=== PATIENT | male | born 1990 | race Two or more races ===

== ENCOUNTER 2017-06-07 19:32 | Observation (INO) | payer MEDICAID ==
[~2017-06-07] VITALS: Ht 177.8 cm; Wt 82.8 kg
[2017-06-07 20:28] LABS: DAU SCREEN DISCLAIMER
[2017-06-07 20:29] LABS: HEMATOCRIT 39.7 % (39.2-51.8); HEMOGLOBIN 13.7 g/dL (13.7-18.0)
[2017-06-07 20:41] LABS: ASPARTATE AMINO TRANSFERASE 34 U/L (15-37); BLOOD UREA NITROGEN 18 mg/dL (7-18)
[2017-06-07 20:44] LABS: ACETAMINOPHEN < 2 mcg/mL (10-30)
[2017-06-07] MEDS ORDERED: INSU100C SQ-INSULIN (21:25)
[2017-06-08] MEDS ORDERED: SODIUM CHLORIDE 0.9% 1,000ML IVBOLUS ONE
[2017-06-08] MEDS ORDERED: ONDANSETRON ODT 4 MG PO PRN (02:00)
[2017-06-08] MEDS ORDERED: ACETAMINOPHEN 325 MG TABLET PO PRN (02:00)
[2017-06-08] MEDS ORDERED: TRAZODONE 50MG TABLET PO PRN (02:00)
[2017-06-08 02:18] VITALS: BP 110/68
[2017-06-08 08:00] VITALS: BP 109/65
[2017-06-08] MEDS: INSULIN REGULAR 100 UNITS/ML, 3ML VIAL SQ-INSULIN SCH ×4 (08:29→21:04)
[2017-06-08 19:46] VITALS: BP 112/68
[2017-06-09] MEDS: INSULIN REGULAR 100 UNITS/ML, 3ML VIAL SQ-INSULIN SCH ×4 (07:00→21:45)
[2017-06-09 07:41] VITALS: BP 110/63
[2017-06-09] MEDS ORDERED: INSULIN DETEMIR 100 UNITS/ML, PEN SQ-INSULIN SCH (18:00)
[2017-06-09 19:55] VITALS: BP 104/68
[2017-06-09] MEDS: INSULIN DETEMIR 100 UNITS/ML, PEN SQ-INSULIN SCH (21:45)
[2017-06-10] MEDS: INSULIN REGULAR 100 UNITS/ML, 3ML VIAL SQ-INSULIN SCH ×3 (07:00→16:00)
[2017-06-10 07:46] VITALS: BP 95/52
[2017-06-10] MEDS: INSULIN DETEMIR 100 UNITS/ML, PEN SQ-INSULIN SCH (09:00)
== END 2017-06-10 18:10 ==
LOC: ED 21:36 → EDIP 06-08 00:37 → 3E 06-08 02:15
PROVIDERS: ADMIT Hospitalist; ATTEND Hospitalist
DX: R45.851 Suicidal ideations (principal); F32.9 Major depressive disorder, single episode, unspecified; F12.90 Cannabis use, unspecified, uncomplicated; F20.9 Schizophrenia, unspecified; E11.65 Type 2 diabetes mellitus with hyperglycemia; F42.9 Obsessive-compulsive disorder, unspecified; Z72.89 Other problems related to lifestyle; Z79.4 Long term (current) use of insulin
CPT/HCPCS: 36415; 80053; 80307; 80329; 82962; 83036; 85025; 96360; 96372; 99285; G0378; J1815; J7030; G0479; G0480

== ENCOUNTER 2019-02-21 07:31 | Emergency (ER) | payer MEDICAID ==
[~2019-02-21] VITALS: Ht 177.8 cm; Wt 88.4 kg
[2019-02-21 09:22] VITALS: BP 121/64
== END 2019-02-21 09:36 | disposition home or self-care (01) ==
LOC: ED 08:56
DX: E10.621 Type 1 diabetes mellitus with foot ulcer (principal); L97.529 Non-pressure chronic ulcer of other part of left foot with unspecified severity; L97.528 Non-pressure chronic ulcer of other part of left foot with other specified severity; F20.9 Schizophrenia, unspecified; F43.10 Post-traumatic stress disorder, unspecified; F42.9 Obsessive-compulsive disorder, unspecified; Z72.9 Problem related to lifestyle, unspecified
CPT/HCPCS: 36415; 80053; 82010; 82803; 85025; 85651; 86140; 99284

== ENCOUNTER 2019-08-29 17:24 | Inpatient (IN) | payer MEDICAID ==
[~2019-08-29] VITALS: Ht 180.3 cm; Wt 101.4 kg
[~2019-08-29 17:24] MED LIST: INSU100C SQ-INSULIN; QUET50TA5 PO; SERT100T PO; [UNRECOGNIZED DRUG - OTHER] SQ-INSULIN
[2019-08-29] MEDS ORDERED: DOCUSATE 100 MG CAPSULE PO PRN (19:30)
[2019-08-29] MEDS ORDERED: POLYETHYLENE GLYCOL 17 GM PACKET PO PRN (19:30)
[2019-08-29] MEDS ORDERED: ONDANSETRON ODT 4 MG PO PRN (19:30)
[2019-08-29] MEDS ORDERED: BISACODYL 10 MG SUPP PR PRN (19:30)
[2019-08-29] MEDS ORDERED: ACETAMINOPHEN 325 MG TABLET PO PRN (19:30)
[2019-08-30] MEDS ORDERED: PLEASE ENTER HEIGHT AND WEIGHT MC SCH (13:00)
[2019-08-30 13:51] VITALS: BP 102/69
[2019-08-30] MEDS ORDERED: GLUCAGON 1 MG IM PRN (14:30)
[2019-08-30] MEDS ORDERED: DEXTROSE 4 GM TAB.CHEW PO PRN (14:30)
[2019-08-30] MEDS ORDERED: DEXTROSE 50%, 50ML SYRINGE IVPush PRN (14:30)
[2019-08-30 14:55] LABS: CHOL/HDL RATIO 4.4; FREE T4 (FREE THYROXINE) 1.7 ng/dL (0.76-1.46); LDL/HDL RATIO 2.4 (0.5-3.0)
[2019-08-30] MEDS: PANTOPRAZOLE 20MG TABLET PO SCH (16:16)
[2019-08-30] MEDS: INSULIN LISPRO 100 UNITS/ML, PEN SQ-INSULIN SCH ×2 (16:56→20:34)
[2019-08-30 19:53] VITALS: BP 105/64
[2019-08-30] MEDS: ACAMPROSATE 333 MG TABLET.DR PO SCH (20:28)
[2019-08-30] MEDS: SODIUM CHLORIDE FLUSH 10ML SYR IVF SCH (20:36)
[2019-08-30] MEDS ORDERED: QUETIAPINE 100MG TABLET ONE (21:20)
[2019-08-30] MEDS ORDERED: QUETIAPINE 100MG TABLET PO PRN (21:30)
[2019-08-31] MEDS: PANTOPRAZOLE 20MG TABLET PO SCH ×2 (06:22→17:39)
[2019-08-31 07:38] VITALS: BP 76/41
[2019-08-31] MEDS: POTASSIUM CHLORIDE 10 MEQ TABLET.ER PO SCH (07:49)
[2019-08-31] MEDS: NICOTINE 14MG/24 HR PATCH.TD24 TD SCH ×2 (07:49→17:38)
[2019-08-31] MEDS: ACAMPROSATE 333 MG TABLET.DR PO SCH ×3 (07:49→20:04)
[2019-08-31] MEDS: INSULIN GLARGINE 100 UNITS/ML, PEN SQ-INSULIN SCH (07:52)
[2019-08-31] MEDS: INSULIN LISPRO 100 UNITS/ML, PEN SQ-INSULIN SCH ×4 (07:52→20:02)
[2019-08-31] MEDS: SODIUM CHLORIDE FLUSH 10ML SYR IVF SCH ×2 (07:52→20:08)
[2019-08-31 08:26] VITALS: BP 117/76
[2019-08-31] MEDS: PALIPERIDONE 6 MG TAB.ER.24 PO SCH (14:58)
[2019-08-31 19:12] VITALS: BP 96/62
[2019-08-31] MEDS: QUETIAPINE 100MG TABLET PO SCH (20:04)
[2019-09-01] MEDS: PANTOPRAZOLE 20MG TABLET PO SCH ×2 (07:14→16:23)
[2019-09-01 07:17] VITALS: BP 115/70
[2019-09-01] MEDS: INSULIN LISPRO 100 UNITS/ML, PEN SQ-INSULIN SCH ×4 (07:55→20:15)
[2019-09-01] MEDS: PALIPERIDONE 6 MG TAB.ER.24 PO SCH (08:33)
[2019-09-01] MEDS: POTASSIUM CHLORIDE 10 MEQ TABLET.ER PO SCH (08:33)
[2019-09-01] MEDS: ACAMPROSATE 333 MG TABLET.DR PO SCH ×3 (08:33→20:55)
[2019-09-01] MEDS: SODIUM CHLORIDE FLUSH 10ML SYR IVF SCH ×2 (08:35→20:53)
[2019-09-01] MEDS: INSULIN GLARGINE 100 UNITS/ML, PEN SQ-INSULIN SCH (08:35)
[2019-09-01] MEDS: NICOTINE 14MG/24 HR PATCH.TD24 TD SCH (16:26)
[2019-09-01 17:52] LABS: MICROSCOPIC NOT IND
[2019-09-01 18:08] LABS: CULTURE INDICATED? NO
[2019-09-01 19:50] VITALS: BP 90/56
[2019-09-01 20:47] VITALS: BP 111/72
[2019-09-01] MEDS: QUETIAPINE 100MG TABLET PO SCH (20:55)
[2019-09-02] MEDS: PANTOPRAZOLE 20MG TABLET PO SCH ×2 (06:18→16:19)
[2019-09-02 07:28] VITALS: BP 119/74
[2019-09-02] MEDS: INSULIN LISPRO 100 UNITS/ML, PEN SQ-INSULIN SCH ×4 (08:09→20:09)
[2019-09-02] MEDS: INSULIN GLARGINE 100 UNITS/ML, PEN SQ-INSULIN SCH (08:11)
[2019-09-02] MEDS: PALIPERIDONE 6 MG TAB.ER.24 PO SCH (08:17)
[2019-09-02] MEDS: ACAMPROSATE 333 MG TABLET.DR PO SCH ×3 (08:17→20:29)
[2019-09-02] MEDS: POTASSIUM CHLORIDE 10 MEQ TABLET.ER PO SCH (08:17)
[2019-09-02] MEDS: SODIUM CHLORIDE FLUSH 10ML SYR IVF SCH ×2 (09:00→21:00)
[2019-09-02] MEDS: NICOTINE 14MG/24 HR PATCH.TD24 TD SCH (17:15)
[2019-09-02 19:47] VITALS: BP 112/65
[2019-09-02] MEDS: QUETIAPINE 100MG TABLET PO SCH (20:28)
[2019-09-03] MEDS: PANTOPRAZOLE 20MG TABLET PO SCH ×2 (06:18→16:36)
[2019-09-03 07:22] VITALS: BP 91/54
[2019-09-03] MEDS: ACAMPROSATE 333 MG TABLET.DR PO SCH ×3 (08:18→20:04)
[2019-09-03] MEDS: POTASSIUM CHLORIDE 10 MEQ TABLET.ER PO SCH (08:19)
[2019-09-03] MEDS: PALIPERIDONE 6 MG TAB.ER.24 PO SCH (08:19)
[2019-09-03] MEDS: INSULIN GLARGINE 100 UNITS/ML, PEN SQ-INSULIN SCH (08:21)
[2019-09-03] MEDS: INSULIN LISPRO 100 UNITS/ML, PEN SQ-INSULIN SCH ×4 (08:22→20:10)
[2019-09-03] MEDS: SODIUM CHLORIDE FLUSH 10ML SYR IVF SCH ×2 (09:00→21:02)
[2019-09-03] MEDS: LORATADINE 10 MG TABLET PO PRN (15:28)
[2019-09-03] MEDS: NICOTINE 14MG/24 HR PATCH.TD24 TD SCH (17:16)
[2019-09-03 19:15] VITALS: BP 110/71
[2019-09-03 19:30] VITALS: BP 117/73
[2019-09-03] MEDS: QUETIAPINE 100MG TABLET PO SCH (20:09)
[2019-09-04] MEDS: PANTOPRAZOLE 20MG TABLET PO SCH ×2 (05:18→17:07)
[2019-09-04 07:26] VITALS: BP 110/68
[2019-09-04] MEDS: INSULIN GLARGINE 100 UNITS/ML, PEN SQ-INSULIN SCH (08:06)
[2019-09-04] MEDS: PALIPERIDONE 6 MG TAB.ER.24 PO SCH (08:07)
[2019-09-04] MEDS: POTASSIUM CHLORIDE 10 MEQ TABLET.ER PO SCH (08:07)
[2019-09-04] MEDS: ACAMPROSATE 333 MG TABLET.DR PO SCH ×3 (08:07→21:06)
[2019-09-04] MEDS: INSULIN LISPRO 100 UNITS/ML, PEN SQ-INSULIN SCH ×4 (08:07→21:05)
[2019-09-04] MEDS: SODIUM CHLORIDE FLUSH 10ML SYR IVF SCH ×2 (09:00→21:06)
[2019-09-04] MEDS ORDERED: PALI6TAB5 PO (13:45)
[2019-09-04] MEDS ORDERED: NICO-486 TD (13:45)
[2019-09-04] MEDS ORDERED: PANT20TA3 PO (13:45)
[2019-09-04] MEDS ORDERED: INSU100I11 SQ-INSULIN (13:45)
[2019-09-04] MEDS ORDERED: POTA10TA5 PO (13:45)
[2019-09-04] MEDS ORDERED: ACAM333T7 PO (13:45)
[2019-09-04] MEDS ORDERED: INSU100I13 SQ-INSULIN ×2 (13:45)
[2019-09-04] MEDS ORDERED: QUET100T PO (13:45)
[2019-09-04] MEDS: NICOTINE 14MG/24 HR PATCH.TD24 TD SCH (17:13)
[2019-09-04] MEDS: LORATADINE 10 MG TABLET PO PRN (17:46)
[2019-09-04 20:00] VITALS: BP 102/58
[2019-09-04] MEDS: QUETIAPINE 100MG TABLET PO SCH (21:06)
[2019-09-05] MEDS: PANTOPRAZOLE 20MG TABLET PO SCH (06:01)
[2019-09-05] MEDS ORDERED: INSULIN GLARGINE 100 UNITS/ML, PEN SQ-INSULIN SCH (08:00)
[2019-09-05] MEDS: INSULIN LISPRO 100 UNITS/ML, PEN SQ-INSULIN SCH (08:13)
[2019-09-05] MEDS: PALIPERIDONE 6 MG TAB.ER.24 PO SCH (08:17)
[2019-09-05] MEDS: POTASSIUM CHLORIDE 10 MEQ TABLET.ER PO SCH (08:18)
[2019-09-05] MEDS: ACAMPROSATE 333 MG TABLET.DR PO SCH (08:18)
[2019-09-05 08:49] VITALS: BP 112/71
[2019-09-05] MEDS: SODIUM CHLORIDE FLUSH 10ML SYR IVF SCH (09:00)
[2019-09-05] MEDS ORDERED: INSU100I13 SQ-INSULIN (09:36)
== END 2019-09-05 10:30 | disposition home or self-care (01) | DRG 885 ==
LOC: 3E 08-30 12:40
PROVIDERS: ADMIT Psychiatry & Neurology Psychosomatic Medicine; ATTEND Psychiatry & Neurology Psychosomatic Medicine
DX: F25.0 Schizoaffective disorder, bipolar type (principal); F11.20 Opioid dependence, uncomplicated; F15.20 Other stimulant dependence, uncomplicated; R45.851 Suicidal ideations; E10.319 Type 1 diabetes mellitus with unspecified diabetic retinopathy without macular edema; E66.9 Obesity, unspecified; E87.6 Hypokalemia; F10.20 Alcohol dependence, uncomplicated; F17.210 Nicotine dependence, cigarettes, uncomplicated; G47.00 Insomnia, unspecified; H54.61 Unqualified visual loss, right eye, normal vision left eye; H91.91 Unspecified hearing loss, right ear; K21.9 Gastro-esophageal reflux disease without esophagitis; K70.10 Alcoholic hepatitis without ascites; R13.10 Dysphagia, unspecified; Z59.0 Homelessness; Z68.31 Body mass index [BMI] 31.0-31.9, adult; Z79.4 Long term (current) use of insulin; Z91.19 Patient's noncompliance with other medical treatment and regimen; Q89.9 Congenital malformation, unspecified
CPT/HCPCS: 36415; 80061; 81003; 82962; 84439; 84443; 93005; J1815

== ENCOUNTER 2019-10-05 09:15 | Emergency (ER) | payer MEDICAID ==
[~2019-10-05] VITALS: Ht 172.7 cm; Wt 98.0 kg
[~2019-10-05 09:15] MED LIST changes: +ACAM333T7 PO; +INSU100I11 SQ-INSULIN; +INSU100I13 SQ-INSULIN; +NICO-486 TD; +PALI6TAB5 PO; +PANT20TA3 PO; +POTA10TA5 PO; +QUET100T PO
[2019-10-05 09:19] VITALS: BP 117/71
[2019-10-05] MEDS ORDERED: LIDOCAINE-MPF 1%, 5ML INFIL ONE (09:30)
[2019-10-05] MEDS ORDERED: DIPH,PERTUSS(ACELL),TET VAC/PF 0.5 ML IM-VACC ONE (09:30)
[2019-10-05] MEDS ORDERED: CLINDAMYCIN PMX 600MG/50ML 50 ML IVPB ONE (09:30)
[2019-10-05] MEDS ORDERED: SODIUM CHLORIDE FLUSH 10ML SYR IVF ONE (09:30)
[2019-10-05] MEDS ORDERED: SODIUM CHLORIDE 0.9% 1,000ML IVBOLUS ONE (09:30)
--- NOTE | 2019-10-05 09:32 | NUR ---
Basic labs drawn from EMS placed piv and sent for analysis
[2019-10-05 09:39] LABS: BASOPHILS # (AUTO) 0.03 x10^3/uL (0-0.1); BASOPHILS % (AUTO) 0 % (0-1); EOSINOPHILS # (AUTO) 0.03 x10^3/uL (0-0.4); EOSINOPHILS % (AUTO) 0 % (1-7); LYMPHOCYTES # (AUTO) 1.51 x10^3/uL (1-3.4); LYMPHOCYTES % (AUTO) 13 % (22-44); MD NO; MEAN CORPUSCULAR HEMOGLOBIN 32.3 pg (27.5-34.5); MEAN CORPUSCULAR VOLUME 95.1 fL (81-97); MEAN PLATELET VOLUME 7.4 fL (7.4-10.4); MONOCYTES # (AUTO) 0.66 x10^3/uL (0.2-0.8); MONOCYTES % (AUTO) 6 % (2-9); NEUTROPHILS # (AUTO) 9.05 x10^3/uL (1.8-6.8); NEUTROPHILS % (AUTO) 80 % (42-75); PLATELET COUNT 299 x10^3/uL (130-400); RED CELL DISTRIBUTION WIDTH 13.2 % (9.4-14.8)
[2019-10-05] MEDS ORDERED: LIDOCAINE-MPF 1%, 5ML ONE (09:39)
[2019-10-05] MEDS ORDERED: CLINDAMYCIN PMX 600MG/50ML 50 ML ONE (09:39)
--- NOTE | 2019-10-05 09:44 | NUR ---
I&D SUPPLIES OBTAINED PER PROVIDER REQUEST PATIENT THEN MEDICATED PER MARCELLA ( 1L NS Addendum: 10/05/19 at 0945 by ANAY ....ABX AND LIDOCAINE PROVIDED TO PROVIDER) REFUSED TDAP (RECENTLY RECEIVED TDAP BOOSTER) PATIENT THEN TO RADIOLOGY AT 0977
--- NOTE | 2019-10-05 09:53 | NUR ---
PATIENT FEELING OVERWHELMED WITH MEDICAL ISSUES. KICKED OUT OF LONG-TERM D/T METH USE. NO CURRENT SI/HI PLAN. ALSO RAN OUT OF PSYCHOTROPIC MEDICATIONS
--- NOTE | 2019-10-05 09:54 | NUR ---
SENIOR TAX SPECIALIST: RECEIVED CALL FROM LAB, WILL TAKE APPROX AN ADDITIONAL 30 MIN FOR LABS TO RESULT, DR DIALLO NOTIFIED.
[2019-10-05 10:18] LABS: ANION GAP 10 mmol/L (5-15); CALCIUM 8.6 mg/dL (8.5-10.1); CHLORIDE 102 mmol/L (98-107)
--- NOTE | 2019-10-05 11:22 | NUR ---
Patient/Caregiver given discharge instructions and they have confirmed that they understand the instructions. Patient ambulatory with steady gait.
== END 2019-10-05 11:25 | disposition home or self-care (01) ==
LOC: ED 09:24
DX: L02.412 Cutaneous abscess of left axilla (principal); E11.65 Type 2 diabetes mellitus with hyperglycemia; F15.10 Other stimulant abuse, uncomplicated; Z72.9 Problem related to lifestyle, unspecified; Z76.0 Encounter for issue of repeat prescription
CPT/HCPCS: 36415; 73080; 80048; 82040; 85025; 96365; 99284; J7030

== ENCOUNTER 2020-07-17 20:44 | Emergency (ER) | payer MEDICAID ==
[~2020-07-17] VITALS: Ht 177.8 cm; Wt 78.3 kg
[~2020-07-17 20:44] MED LIST changes: -PANT20TA3 PO; +PANT20TA4 PO
[2020-07-17] MEDS ORDERED: SODIUM CHLORIDE 0.9% 1,000ML IVBOLUS ONE ×2 (21:30→23:30)
[2020-07-17 21:52] LABS: PH, VENOUS 7.427 pH (7.320-7.420)
[2020-07-17 21:56] LABS: BASOPHILS % (AUTO) 0 % (0-1); EOSINOPHILS % (AUTO) 0 % (1-7); LYMPHOCYTES % (AUTO) 14 % (22-44); MEAN CORPUSCULAR HEMOGLOBIN 33.7 pg (27.5-34.5); MEAN CORPUSCULAR HGB CONC 35.7 g/dL (33.2-36.2); MEAN PLATELET VOLUME 7.8 fL (7.4-10.4); MONOCYTES % (AUTO) 13 % (2-9); NEUTROPHILS % (AUTO) 73 % (42-75); PLATELET COUNT 249 x10^3/uL (130-400); RED BLOOD COUNT 3.32 x10^6/uL (4.38-5.82); RED CELL DISTRIBUTION WIDTH 13.1 % (9.4-14.8)
[2020-07-17 21:57] LABS: MD NO
[2020-07-17 22:02] LABS: ACETONE, SERUM Moderate(40mg/dL) (Negative)
[2020-07-17 22:05] LABS: ALANINE AMINOTRANSFERASE 86 U/L (12-78); ALBUMIN 2.9 g/dL (3.4-5.0); ANION GAP 6 mmol/L (5-15); CHLORIDE 93 mmol/L (98-107); CREATININE 1.24 mg/dL (0.7-1.3)
[2020-07-17 22:08] LABS: ALKALINE PHOSPHATASE 180 U/L (45-117); BILIRUBIN,TOTAL 0.7 mg/dL (0.2-1.0); TOTAL PROTEIN 6.9 g/dL (6.4-8.2)
[2020-07-17] MEDS ORDERED: INSULIN SINGLE DOSE, ER ONE (22:26)
[2020-07-17] MEDS ORDERED: INSULIN REGULAR 100 UNITS/ML, 3ML VIAL IVPush ONE (22:30)
[2020-07-17] MEDS ORDERED: LIDOCAINE 2%, 20ML SQ ONE (22:30)
[2020-07-17] MEDS ORDERED: DIPH,PERTUSS(ACELL),TET VAC/PF 0.5 ML IM-VACC ONE ×2 (22:30→22:49)
--- NOTE | 2020-07-17 22:33 | NUR ---
10 UNITS INSULIN GIVEN. RN AT BEDSIDE. FLUIDS IN FUSING IN 18 G IV RIGHT AC.
[2020-07-17] MEDS ORDERED: LIDOCAINE-MPF 2% ,5ML ONE (22:49)
--- NOTE | 2020-07-17 23:01 | NUR ---
Bedside glucose 576 Addendum: 07/17/20 at 2303 by CCRARY Bedside glucose 567
[2020-07-17 23:52] LABS: ESTIMATED AVERAGE GLUCOSE 355 mg/dL (0-126)
--- NOTE | 2020-07-18 00:06 | NUR ---
Bedside glucose 447
--- NOTE | 2020-07-18 00:45 | NUR ---
Pt reporting leg cramps. Informing provider.
[2020-07-18 00:50] VITALS: BP 120/73
--- NOTE | 2020-07-18 00:57 | NUR ---
Pt getting dressed.
== END 2020-07-18 01:12 | disposition home or self-care (01) ==
LOC: ED 21:41
DX: L03.012 Cellulitis of left finger (principal); L02.416 Cutaneous abscess of left lower limb; E10.65 Type 1 diabetes mellitus with hyperglycemia; Z72.9 Problem related to lifestyle, unspecified; F17.210 Nicotine dependence, cigarettes, uncomplicated; Z91.14 Patient's other noncompliance with medication regimen
CPT/HCPCS: 10060; 73130; 73552; 80053; 82010; 82803; 82962; 83036; 85025; 90471; 90715; 96361; 96374; 99284; 99406; J1815; J7030

== ENCOUNTER 2020-07-20 17:29 | Inpatient (IN) | payer MEDICAID ==
[~2020-07-20] VITALS: Ht 177.8 cm; Wt 90.9 kg
[2020-07-20] MEDS ORDERED: VANCOMYCIN PER PHARMACY MC ONE (18:30)
[2020-07-20] MEDS ORDERED: AMPICILLIN/SULBACTAM 3 GM in SODIUM CHLORIDE 0.9% 100 ML IV ONE (18:30)
[2020-07-20] MEDS ORDERED: SODIUM CHLORIDE FLUSH 10ML SYR IVF ONE (18:30)
[2020-07-20] MEDS ORDERED: SODIUM CHLORIDE 0.9% 1,000ML IVBOLUS ONE ×3 (18:30→20:30)
--- NOTE | 2020-07-20 18:50 | NUR ---
PT IN ULTRASOUND.
[2020-07-20] MEDS ORDERED: VANCOMYCIN 2,000 MG in SODIUM CHLORIDE 0.9% 500 ML IV ONE (19:00)
--- NOTE | 2020-07-20 19:20 | NUR ---
ABX INFUSING AFTER 2 SETS OF BLOOD CULTURES DRAWN.
[2020-07-20 19:25] LABS: BASOPHILS % (AUTO) 0 % (0-1); EOSINOPHILS % (AUTO) 0 % (1-7); LYMPHOCYTES % (AUTO) 14 % (22-44); MEAN CORPUSCULAR HGB CONC 35.3 g/dL (33.2-36.2); MEAN PLATELET VOLUME 7.9 fL (7.4-10.4); MONOCYTES % (AUTO) 8 % (2-9); NEUTROPHILS % (AUTO) 77 % (42-75); PLATELET COUNT 215 x10^3/uL (130-400); RED BLOOD COUNT 3.09 x10^6/uL (4.38-5.82); RED CELL DISTRIBUTION WIDTH 12.8 % (9.4-14.8)
[2020-07-20 19:30] LABS: MD NO
[2020-07-20 19:36] LABS: ALBUMIN 2.3 g/dL (3.4-5.0); ANION GAP 8 mmol/L (5-15); CALCIUM 7.8 mg/dL (8.5-10.1); CHLORIDE 95 mmol/L (98-107); CREATININE 0.97 mg/dL (0.7-1.3)
[2020-07-20] MEDS ORDERED: INSULIN SINGLE DOSE, ER ONE (19:52)
[2020-07-20] MEDS ORDERED: INSULIN REGULAR 100 UNITS/ML, 3ML VIAL IV ONE (20:00)
[2020-07-20 20:17] LABS: ACETONE, SERUM Trace (Negative)
--- NOTE | 2020-07-20 20:42 | NUR ---
PT RESTING ON GURNEY, SLEEPING INTERMITTENTLY. VSS.
[2020-07-20] MEDS ORDERED: ACETAMINOPHEN 325 MG TABLET PO PRN (21:00)
[2020-07-20] MEDS ORDERED: LABETALOL 5MG/ML, 20ML IVPush PRN (21:00)
[2020-07-20] MEDS ORDERED: morphine SULFATE 10 MG/ML, 1ML IVPush PRN (21:00)
[2020-07-20] MEDS ORDERED: VANCOMYCIN PER PHARMACY MC PRN (21:00)
[2020-07-20] MEDS ORDERED: HYDROcodone/APAP 5/325 TABLET PO PRN (21:00)
[2020-07-20] MEDS ORDERED: ONDANSETRON 2MG/ML, 2ML IVPush PRN (21:00)
[2020-07-20] MEDS ORDERED: DOCUSATE 100 MG CAPSULE PO PRN (21:00)
[2020-07-20] MEDS ORDERED: SODIUM CHLORIDE 0.9% 1,000 ML IV SCH (21:00)
--- NOTE | 2020-07-20 21:23 | NUR ---
REPORT GIVEN TO BLADIMIR GAYTAN.
[2020-07-20] MEDS ORDERED: PHARMACOKINETIC CONSULTATION MC ONE (22:00)
[2020-07-20] MEDS ORDERED: PHARMACOKINETIC MONITORING MC PRN (22:00)
[2020-07-20 22:02] VITALS: BP 143/76
[2020-07-20] MEDS ORDERED: OMNIPAQUE 350 MG/ML, 100ML BOTTLE ONE (22:17)
[2020-07-20] MEDS: QUETIAPINE 100MG TABLET PO SCH (22:30)
[2020-07-20] MEDS: ACAMPROSATE 333 MG TABLET.DR PO SCH (22:30)
[2020-07-20] MEDS: NICOTINE 14MG/24 HR PATCH.TD24 TD SCH (22:30)
[2020-07-20] MEDS: HEPARIN 5,000 UNITS/ML, 1ML SQ SCH (22:30)
[2020-07-20] MEDS: INSULIN REGULAR 100 UNITS/ML, 3ML VIAL SQ-INSULIN SCH (23:17)
[2020-07-21] MEDS: AMPICILLIN/SULBACTAM 3 GM in SODIUM CHLORIDE 0.9% 100 ML IV SCH ×4 (00:46→19:24)
[2020-07-21] MEDS ORDERED: SODIUM CHLORIDE 0.9% 1,000 ML IV SCH (01:00)
[2020-07-21 01:13] VITALS: BP 122/67
[2020-07-21] MEDS: SODIUM CHLORIDE 0.9% 1,000 ML IV SCH ×2 (02:12→20:15)
[2020-07-21] MEDS: HEPARIN 5,000 UNITS/ML, 1ML SQ SCH ×3 (05:00→20:13)
[2020-07-21] MEDS: PANTOPRAZOLE 20MG TABLET PO SCH ×2 (05:40→16:00)
[2020-07-21 06:16] LABS: BASOPHILS % (AUTO) 0 % (0-1); EOSINOPHILS % (AUTO) 0 % (1-7); LYMPHOCYTES % (AUTO) 19 % (22-44); MEAN CORPUSCULAR HEMOGLOBIN 33.9 pg (27.5-34.5); MEAN CORPUSCULAR HGB CONC 35.7 g/dL (33.2-36.2); MEAN PLATELET VOLUME 7.9 fL (7.4-10.4); MONOCYTES % (AUTO) 9 % (2-9); NEUTROPHILS % (AUTO) 71 % (42-75); PLATELET COUNT 208 x10^3/uL (130-400); RED BLOOD COUNT 2.81 x10^6/uL (4.38-5.82); RED CELL DISTRIBUTION WIDTH 12.7 % (9.4-14.8)
[2020-07-21 06:21] LABS: ANION GAP 4 mmol/L (5-15); CALCIUM 7.2 mg/dL (8.5-10.1); CHLORIDE 107 mmol/L (98-107); CREATININE 0.73 mg/dL (0.7-1.3)
[2020-07-21 06:34] LABS: MD NO
[2020-07-21 06:37] VITALS: BP 122/74
[2020-07-21] MEDS: INSULIN REGULAR 100 UNITS/ML, 3ML VIAL SQ-INSULIN SCH ×4 (07:25→20:13)
[2020-07-21] MEDS: VANCOMYCIN 1,700 MG in SODIUM CHLORIDE 0.9% 250 ML IV SCH ×2 (08:13→20:12)
[2020-07-21] MEDS: ACAMPROSATE 333 MG TABLET.DR PO SCH ×3 (09:10→20:12)
[2020-07-21] MEDS: INSULIN GLARGINE 100 UNITS/ML, PEN SQ-INSULIN SCH (09:10)
[2020-07-21] MEDS: SERTRALINE 100MG TABLET PO SCH (09:10)
[2020-07-21] MEDS: POTASSIUM CHLORIDE 10 MEQ TABLET.ER PO SCH (09:10)
[2020-07-21] MEDS: PALIPERIDONE 6 MG TAB.ER.24 PO SCH (09:10)
[2020-07-21 12:10] VITALS: BP 109/65
[2020-07-21 19:30] VITALS: BP 103/62
[2020-07-21] MEDS: QUETIAPINE 100MG TABLET PO SCH (20:12)
[2020-07-21] MEDS: NICOTINE 14MG/24 HR PATCH.TD24 TD SCH (20:13)
[2020-07-22 00:15] VITALS: BP 105/63
[2020-07-22] MEDS: AMPICILLIN/SULBACTAM 3 GM in SODIUM CHLORIDE 0.9% 100 ML IV SCH ×4 (01:44→19:07)
[2020-07-22] MEDS: PANTOPRAZOLE 20MG TABLET PO SCH ×2 (05:07→16:04)
[2020-07-22] MEDS: HEPARIN 5,000 UNITS/ML, 1ML SQ SCH ×3 (05:08→20:21)
[2020-07-22 05:40] LABS: ANION GAP 2 mmol/L (5-15); CHLORIDE 112 mmol/L (98-107)
[2020-07-22 05:42] LABS: CALCIUM 7.5 mg/dL (8.5-10.1); CREATININE 0.57 mg/dL (0.7-1.3)
[2020-07-22 06:50] VITALS: BP 123/76
[2020-07-22] MEDS: INSULIN REGULAR 100 UNITS/ML, 3ML VIAL SQ-INSULIN SCH ×4 (07:00→20:21)
[2020-07-22] MEDS: VANCOMYCIN 1,700 MG in SODIUM CHLORIDE 0.9% 250 ML IV SCH ×2 (08:28→20:18)
[2020-07-22] MEDS: POTASSIUM CHLORIDE 10 MEQ TABLET.ER PO SCH (08:28)
[2020-07-22] MEDS: SERTRALINE 100MG TABLET PO SCH (08:29)
[2020-07-22] MEDS: PALIPERIDONE 6 MG TAB.ER.24 PO SCH (08:29)
[2020-07-22] MEDS: ACAMPROSATE 333 MG TABLET.DR PO SCH ×3 (08:29→20:18)
[2020-07-22] MEDS: INSULIN GLARGINE 100 UNITS/ML, PEN SQ-INSULIN SCH (08:49)
[2020-07-22 12:15] VITALS: BP 108/65
[2020-07-22] MEDS: SODIUM CHLORIDE 0.9% 1,000 ML IV SCH (12:40)
[2020-07-22 19:21] VITALS: BP 130/83
[2020-07-22] MEDS: QUETIAPINE 100MG TABLET PO SCH (20:19)
[2020-07-22] MEDS: NICOTINE 14MG/24 HR PATCH.TD24 TD SCH (20:20)
[2020-07-23 00:41] VITALS: BP 117/76
[2020-07-23] MEDS: AMPICILLIN/SULBACTAM 3 GM in SODIUM CHLORIDE 0.9% 100 ML IV SCH (01:33)
[2020-07-23] MEDS: PANTOPRAZOLE 20MG TABLET PO SCH ×2 (05:24→16:01)
[2020-07-23] MEDS: HEPARIN 5,000 UNITS/ML, 1ML SQ SCH ×3 (05:24→20:28)
[2020-07-23] MEDS: SODIUM CHLORIDE 0.9% 1,000 ML IV SCH ×2 (05:25→20:32)
[2020-07-23 06:58] VITALS: BP 112/70
[2020-07-23] MEDS: INSULIN REGULAR 100 UNITS/ML, 3ML VIAL SQ-INSULIN SCH ×5 (07:59→20:29)
[2020-07-23] MEDS: INSULIN GLARGINE 100 UNITS/ML, PEN SQ-INSULIN SCH (07:59)
[2020-07-23] MEDS: SERTRALINE 100MG TABLET PO SCH (08:00)
[2020-07-23] MEDS: AMOXICILLIN/CLAV 875-125MG TABLET PO SCH ×2 (08:00→20:28)
[2020-07-23] MEDS: POTASSIUM CHLORIDE 10 MEQ TABLET.ER PO SCH (08:00)
[2020-07-23] MEDS: PALIPERIDONE 6 MG TAB.ER.24 PO SCH (08:00)
[2020-07-23] MEDS: DOXYCYCLINE 100MG CAP PO SCH ×2 (08:00→20:28)
[2020-07-23] MEDS: ACAMPROSATE 333 MG TABLET.DR PO SCH ×3 (08:00→20:27)
[2020-07-23 12:57] VITALS: BP 130/78
[2020-07-23 19:00] VITALS: BP 132/78
[2020-07-23] MEDS: NICOTINE 14MG/24 HR PATCH.TD24 TD SCH ×2 (20:28→20:34)
[2020-07-23] MEDS: QUETIAPINE 100MG TABLET PO SCH (20:29)
[2020-07-24 00:37] VITALS: BP 116/66
[2020-07-24] MEDS: PANTOPRAZOLE 20MG TABLET PO SCH ×2 (05:16→16:30)
[2020-07-24] MEDS: HEPARIN 5,000 UNITS/ML, 1ML SQ SCH ×3 (05:16→20:17)
[2020-07-24] MEDS: SODIUM CHLORIDE 0.9% 1,000 ML IV SCH ×2 (07:00→16:32)
[2020-07-24] MEDS: INSULIN REGULAR 100 UNITS/ML, 3ML VIAL SQ-INSULIN SCH (07:00)
[2020-07-24] MEDS ORDERED: VANCOMYCIN PER PHARMACY MC PRN (07:30)
[2020-07-24] MEDS ORDERED: PHARMACOKINETIC CONSULTATION MC ONE (07:30)
[2020-07-24] MEDS ORDERED: PHARMACOKINETIC MONITORING MC PRN (07:30)
[2020-07-24] MEDS ORDERED: VANCOMYCIN 2,200 MG in SODIUM CHLORIDE 0.9% 500 ML IV ONE (07:30)
[2020-07-24 07:56] VITALS: BP 118/74
[2020-07-24] MEDS: AMOXICILLIN/CLAV 875-125MG TABLET PO SCH ×2 (08:05→20:16)
[2020-07-24] MEDS: POTASSIUM CHLORIDE 10 MEQ TABLET.ER PO SCH (08:05)
[2020-07-24] MEDS: SERTRALINE 100MG TABLET PO SCH (08:05)
[2020-07-24] MEDS: DOXYCYCLINE 100MG CAP PO SCH (08:05)
[2020-07-24] MEDS: ACAMPROSATE 333 MG TABLET.DR PO SCH ×3 (08:05→20:16)
[2020-07-24] MEDS: INSULIN GLARGINE 100 UNITS/ML, PEN SQ-INSULIN SCH (08:17)
[2020-07-24] MEDS ORDERED: LORazepam 2 MG/ML, 1ML IVPush PRN (10:30)
[2020-07-24] MEDS: PALIPERIDONE 6 MG TAB.ER.24 PO SCH ×2 (14:37→14:38)
[2020-07-24 14:39] VITALS: BP 127/71
[2020-07-24] MEDS ORDERED: VANCOMYCIN 1,700 MG in SODIUM CHLORIDE 0.9% 250 ML IV SCH (19:30)
[2020-07-24 20:00] VITALS: BP 143/90
[2020-07-24] MEDS: QUETIAPINE 100MG TABLET PO SCH (20:16)
[2020-07-24] MEDS: NICOTINE 14MG/24 HR PATCH.TD24 TD SCH (20:16)
[2020-07-24] MEDS: LINEZOLID 600 MG TABLET PO SCH (20:16)
[2020-07-25 01:06] VITALS: BP 122/72
[2020-07-25] MEDS: HEPARIN 5,000 UNITS/ML, 1ML SQ SCH ×2 (04:56→13:13)
[2020-07-25] MEDS: PANTOPRAZOLE 20MG TABLET PO SCH (04:56)
[2020-07-25 07:11] VITALS: BP 142/88
[2020-07-25 07:19] VITALS: BP 131/88
[2020-07-25] MEDS: SERTRALINE 100MG TABLET PO SCH (07:34)
[2020-07-25] MEDS: ACAMPROSATE 333 MG TABLET.DR PO SCH (07:34)
[2020-07-25] MEDS: AMOXICILLIN/CLAV 875-125MG TABLET PO SCH (07:34)
[2020-07-25] MEDS: SODIUM CHLORIDE 0.9% 1,000 ML IV SCH (07:35)
[2020-07-25] MEDS: POTASSIUM CHLORIDE 10 MEQ TABLET.ER PO SCH (07:35)
[2020-07-25] MEDS: LINEZOLID 600 MG TABLET PO SCH (07:35)
[2020-07-25] MEDS: PALIPERIDONE 6 MG TAB.ER.24 PO SCH (07:46)
[2020-07-25] MEDS ORDERED: INSULIN GLARGINE 100 UNITS/ML, PEN SQ-INSULIN SCH (08:00)
[2020-07-25 08:41] LABS: BASOPHILS % (AUTO) 1 % (0-1); EOSINOPHILS % (AUTO) 1 % (1-7); LYMPHOCYTES % (AUTO) 31 % (22-44); MEAN CORPUSCULAR HEMOGLOBIN 33.4 pg (27.5-34.5); MEAN CORPUSCULAR HGB CONC 34.7 g/dL (33.2-36.2); MEAN PLATELET VOLUME 6.9 fL (7.4-10.4); MONOCYTES % (AUTO) 11 % (2-9); NEUTROPHILS % (AUTO) 56 % (42-75); PLATELET COUNT 357 x10^3/uL (130-400); RED BLOOD COUNT 3.07 x10^6/uL (4.38-5.82)
[2020-07-25 08:50] LABS: MD NO
[2020-07-25 08:52] LABS: ALANINE AMINOTRANSFERASE 47 U/L (12-78); ALBUMIN 1.6 g/dL (3.4-5.0); ANION GAP 6 mmol/L (5-15); CHLORIDE 110 mmol/L (98-107); CREATININE 0.74 mg/dL (0.7-1.3)
[2020-07-25 08:55] LABS: ALKALINE PHOSPHATASE 78 U/L (45-117); BILIRUBIN,TOTAL 0.3 mg/dL (0.2-1.0); TOTAL PROTEIN 5.4 g/dL (6.4-8.2)
[2020-07-25 13:00] VITALS: BP 124/76
== END 2020-07-25 16:09 | disposition left against medical advice (07) | DRG 603 ==
LOC: ED 18:10 → EDIP 20:57 → 3N 21:41
PROVIDERS: ADMIT Family Medicine; ATTEND Internal Medicine
DX: L03.116 Cellulitis of left lower limb (principal); E87.1 Hypo-osmolality and hyponatremia; B95.62 Methicillin resistant Staphylococcus aureus infection as the cause of diseases classified elsewhere; D64.9 Anemia, unspecified; E10.65 Type 1 diabetes mellitus with hyperglycemia; F10.20 Alcohol dependence, uncomplicated; L02.416 Cutaneous abscess of left lower limb; F19.10 Other psychoactive substance abuse, uncomplicated; Z59.0 Homelessness; Z72.0 Tobacco use; Z71.6 Tobacco abuse counseling; Z79.4 Long term (current) use of insulin; Z82.49 Family history of ischemic heart disease and other diseases of the circulatory system; Z83.3 Family history of diabetes mellitus
CPT/HCPCS: 36415; 80048; 80053; 80202; 82010; 82040; 82800; 82947; 82962; 83605; 83735; 85025; 87040; 87070; 87077; 87147; 87186; 87205; 93005; 96374; 99285; G0378; J0295; J1644; J3370; Q9967; J1815; J2060; J7030; J7040; J7050

== ENCOUNTER 2020-07-30 13:39 | Emergency (ER) | payer MEDICAID ==
[~2020-07-30] VITALS: Ht 177.8 cm; Wt 90.3 kg
[2020-07-30] MEDS ORDERED: SODIUM CHLORIDE 0.9% 1,000ML IVBOLUS ONE (14:30)
[2020-07-30 14:44] LABS: BASOPHILS % (AUTO) 1 % (0-1); EOSINOPHILS % (AUTO) 0 % (1-7); LYMPHOCYTES % (AUTO) 25 % (22-44); MEAN CORPUSCULAR HEMOGLOBIN 33.6 pg (27.5-34.5); MEAN CORPUSCULAR HGB CONC 35.6 g/dL (33.2-36.2); MEAN PLATELET VOLUME 6.5 fL (7.4-10.4); MONOCYTES % (AUTO) 5 % (2-9); NEUTROPHILS % (AUTO) 69 % (42-75); PLATELET COUNT 467 x10^3/uL (130-400); RED BLOOD COUNT 2.83 x10^6/uL (4.38-5.82); RED CELL DISTRIBUTION WIDTH 13.5 % (9.4-14.8)
[2020-07-30 14:48] LABS: MD NO
--- NOTE | 2020-07-30 14:57 | NUR ---
US at bedside.
[2020-07-30 14:58] LABS: ALANINE AMINOTRANSFERASE 87 U/L (12-78); ALBUMIN 2.5 g/dL (3.4-5.0); ANION GAP 6 mmol/L (5-15); CALCIUM 8.2 mg/dL (8.5-10.1); CHLORIDE 107 mmol/L (98-107); CREATININE 0.88 mg/dL (0.7-1.3)
[2020-07-30 15:01] LABS: ALKALINE PHOSPHATASE 166 U/L (45-117); BILIRUBIN,TOTAL 0.4 mg/dL (0.2-1.0); TOTAL PROTEIN 7.1 g/dL (6.4-8.2)
[2020-07-30 15:37] LABS: ACETONE, SERUM Negative (Negative)
--- NOTE | 2020-07-30 16:17 | NUR ---
Pt at imaging. UA collected and tubed to lab.
[2020-07-30 16:25] LABS: MICROSCOPIC AUTO
[2020-07-30] MEDS ORDERED: CEFTRIAXONE PMX 1GM/50ML 50 ML ONE (16:39)
--- NOTE | 2020-07-30 16:53 | NUR ---
RN at bedside. Rocephin infusing. Pt denies needs at this time.
[2020-07-30] MEDS ORDERED: CEFTRIAXONE PMX 1GM/50ML 50 ML IV ONE (17:00)
--- NOTE | 2020-07-30 17:32 | NUR ---
IV discontinued- catheter tip intact, hemostasis achieved. Pt agrees with and understands discharge plan and instructions.
[2020-07-30 17:33] VITALS: BP 145/89
== END 2020-07-30 17:57 | disposition home or self-care (01) ==
LOC: ED 14:26
DX: K70.10 Alcoholic hepatitis without ascites (principal); N49.2 Inflammatory disorders of scrotum; F15.10 Other stimulant abuse, uncomplicated
CPT/HCPCS: 36415; 72190; 76870; 80053; 80320; 81001; 82010; 82800; 85025; 93971; 96361; 96365; 99285; J0696; J7030; G0480

== ENCOUNTER 2020-12-30 15:34 | Emergency (ER) | payer MEDICAID ==
[~2020-12-30] VITALS: Ht 175.3 cm; Wt 100.0 kg
[~2020-12-30 15:34] MED LIST changes: +AMOX1TAB64 PO; +DOXY100C PO; +PRED20TA PO
--- NOTE | 2020-12-30 16:05 | NUR ---
PABLO CHOUDHURY from [facility] for high blood sugar. Per EMS their glucometer read 'high". Pt has hx of DM, reports he has not taken any of his home meds (seroquel, insulin, gabapentin) for over a month. 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 Pt states he drinks one pint of vodka and 22 tall cans of beer daily, drank one tall can off beer today. No tremors noted, no visual/auditory hallucinations. Pt reports last meth use yesterday, usually used IV. Pt drowsy but arousable to his name being called and cooperative with staff. Pt denies pain or other complaint. Per [facility] if pt is medically cleared they would like him back for substance detox. Pt able to change into gown and position himself for comfort in bed independently. Continuous heart, oxygen and BP monitors applied, all safety measures observed
--- NOTE | 2020-12-30 16:12 | NUR ---
Report to JUSTO GAYTAN.
[2020-12-30] MEDS ORDERED: ONDANSETRON 2MG/ML, 2ML IVPush ONE (16:30)
[2020-12-30] MEDS ORDERED: SODIUM CHLORIDE 0.9% 1,000ML IVBOLUS ONE ×2 (16:30→17:30)
[2020-12-30 16:57] LABS: BASOPHILS % (AUTO) 1 % (0-1); EOSINOPHILS % (AUTO) 1 % (1-7); LYMPHOCYTES % (AUTO) 26 % (22-44); MEAN CORPUSCULAR HEMOGLOBIN 34.9 pg (27.5-34.5); MEAN CORPUSCULAR HGB CONC 35.5 g/dL (33.2-36.2); MEAN PLATELET VOLUME 7.9 fL (7.4-10.4); MONOCYTES % (AUTO) 6 % (2-9); NEUTROPHILS % (AUTO) 67 % (42-75); PLATELET COUNT 228 x10^3/uL (130-400); RED BLOOD COUNT 3.84 x10^6/uL (4.38-5.82); RED CELL DISTRIBUTION WIDTH 13.4 % (9.4-14.8)
[2020-12-30 17:01] LABS: ALANINE AMINOTRANSFERASE 281 U/L (12-78); ANION GAP 8 mmol/L (5-15); CALCIUM 8.4 mg/dL (8.5-10.1); CHLORIDE 96 mmol/L (98-107); CREATININE 1.02 mg/dL (0.7-1.3)
[2020-12-30 17:03] LABS: ALKALINE PHOSPHATASE 199 U/L (45-117); BILIRUBIN,TOTAL 0.6 mg/dL (0.2-1.0); TOTAL PROTEIN 6.6 g/dL (6.4-8.2)
[2020-12-30 17:13] LABS: PH, VENOUS 7.398 pH (7.320-7.420)
[2020-12-30 17:14] LABS: ACETONE, SERUM Moderate(40mg/dL) (Negative)
[2020-12-30] MEDS ORDERED: INSULIN REGULAR 100 UNITS/ML, 3ML VIAL IV ONE (17:30)
[2020-12-30] MEDS ORDERED: INSULIN SINGLE DOSE, ER ONE ×2 (17:38→19:40)
[2020-12-30] MEDS ORDERED: INSULIN REGULAR 100 UNITS/ML, 3ML VIAL SQ-INSULIN ONE (19:30)
[2020-12-30 21:06] VITALS: BP 108/64
--- NOTE | 2020-12-30 21:36 | NUR ---
Patient not ready for safe discharge.
--- NOTE | 2020-12-31 00:42 | NUR ---
Discharge instructions given. All questions and concerns addressed. Patient ambulatory with a stead gait. No complaints. Belongings with patient.
== END 2020-12-31 00:43 | disposition home or self-care (01) ==
LOC: ED 17:58
DX: E11.65 Type 2 diabetes mellitus with hyperglycemia (principal); F15.129 Other stimulant abuse with intoxication, unspecified; F10.129 Alcohol abuse with intoxication, unspecified; F17.200 Nicotine dependence, unspecified, uncomplicated; Z79.4 Long term (current) use of insulin; Y90.0 Blood alcohol level of less than 20 mg/100 ml
CPT/HCPCS: 36415; 71045; 80053; 80320; 82010; 82803; 82962; 83735; 85025; 96374; 99284; J1815; J7030; G0480

== ENCOUNTER 2021-01-18 21:30 | Inpatient (IN) | payer MEDICAID ==
[~2021-01-18] VITALS: Ht 177.8 cm; Wt 68.6 kg
[2021-01-18] MEDS ORDERED: ONDANSETRON 2MG/ML, 2ML ONE (21:52)
[2021-01-18] MEDS ORDERED: LACTATED RINGERS 1,000 ML IVBOLUS ONE (22:00)
[2021-01-18] MEDS ORDERED: ONDANSETRON 2MG/ML, 2ML IVPush ONE (22:00)
--- NOTE | 2021-01-18 22:05 | NUR ---
Pt reports eating meth and having nausea, pt tachy in the low 120's on the monitor, maintaining airway, speaking in full sentences, IV placed and IVF running per order, JASMEET, BRIANTM
[2021-01-18 22:32] LABS: BASOPHILS % (AUTO) 0 % (0-1); EOSINOPHILS % (AUTO) 0 % (1-7); LYMPHOCYTES % (AUTO) 12 % (22-44); MEAN CORPUSCULAR HEMOGLOBIN 34.8 pg (27.5-34.5); MEAN CORPUSCULAR HGB CONC 35.7 g/dL (33.2-36.2); MEAN PLATELET VOLUME 7.9 fL (7.4-10.4); MONOCYTES % (AUTO) 6 % (2-9); NEUTROPHILS % (AUTO) 82 % (42-75); PLATELET COUNT 313 x10^3/uL (130-400); RED BLOOD COUNT 4.08 x10^6/uL (4.38-5.82); RED CELL DISTRIBUTION WIDTH 12.3 % (9.4-14.8)
[2021-01-18 22:44] LABS: ALANINE AMINOTRANSFERASE 138 U/L (12-78); ALBUMIN 3.6 g/dL (3.4-5.0); ANION GAP 12 mmol/L (5-15); CALCIUM 11.3 mg/dL (8.5-10.1); CHLORIDE 90 mmol/L (98-107); CREATININE 1.47 mg/dL (0.7-1.3)
[2021-01-18 22:46] LABS: ALKALINE PHOSPHATASE 126 U/L (45-117); BILIRUBIN,TOTAL 0.8 mg/dL (0.2-1.0); TOTAL PROTEIN 8.2 g/dL (6.4-8.2)
[2021-01-18 22:48] LABS: PH, VENOUS 7.374 pH (7.320-7.420)
[2021-01-18 22:52] LABS: O2 FLOW ROOM AIR L/min
[2021-01-18 22:59] LABS: ACETONE, SERUM Moderate(40mg/dL) (Negative)
--- NOTE | 2021-01-19 00:21 | NUR ---
Pt BG 579 on hospital glucometer, MD Dhaliwal notified, 1L LR ordered per MD along with insulin, WCTM
[2021-01-19] MEDS ORDERED: LACTATED RINGERS 1,000 ML IVBOLUS ONE (00:30)
[2021-01-19] MEDS ORDERED: INSULIN SINGLE DOSE, ER ONE ×2 (00:51→02:07)
[2021-01-19] MEDS ORDERED: INSULIN REGULAR 100 UNITS/ML, 3ML VIAL IVPush ONE ×2 (02:00)
--- NOTE | 2021-01-19 02:58 | NUR ---
Report to Maryse GAYTAN
[2021-01-19] MEDS ORDERED: LABETALOL 5MG/ML, 20ML IVPush PRN (03:30)
[2021-01-19] MEDS ORDERED: ONDANSETRON 2MG/ML, 2ML IVPush PRN (03:30)
[2021-01-19] MEDS: INSULIN LISPRO 100 UNITS/ML, PEN SQ-INSULIN SCH ×5 (03:30→21:49)
[2021-01-19] MEDS ORDERED: FOLIC ACID 5 MG/ML IM ONE (03:30)
[2021-01-19] MEDS ORDERED: PROMETHAZINE 25 MG/ML, 1ML IM PRN (03:30)
[2021-01-19] MEDS ORDERED: LORazepam 1MG TABLET PO PRN ×4 (03:30)
[2021-01-19] MEDS ORDERED: BACLOFEN 10 MG TABLET PO PRN (03:30)
[2021-01-19] MEDS ORDERED: LORazepam 0.5MG TABLET PO PRN (03:30)
[2021-01-19] MEDS ORDERED: POLYETHYLENE GLYCOL 17 GM PACKET PO PRN (03:30)
[2021-01-19] MEDS ORDERED: MELATONIN 5 MG TABLET PO PRN (03:30)
[2021-01-19] MEDS ORDERED: THIAMINE 200 MG, FOLIC ACID 1 MG in DEXTROSE 5% 50 ML IVPB ONE (03:30)
[2021-01-19] MEDS ORDERED: ACETAMINOPHEN 325 MG TABLET PO PRN (03:30)
[2021-01-19 03:34] VITALS: BP 135/76
[2021-01-19] MEDS: D5%-LACTATED RINGERS 1,000 ML IV SCH ×2 (04:31→15:29)
[2021-01-19] MEDS: ENOXAPARIN 40 MG/0.4 ML SQ SCH (04:31)
[2021-01-19 04:55] LABS: BASOPHILS % (AUTO) 1 % (0-1); EOSINOPHILS % (AUTO) 0 % (1-7); LYMPHOCYTES % (AUTO) 29 % (22-44); MEAN CORPUSCULAR HEMOGLOBIN 35.5 pg (27.5-34.5); MEAN CORPUSCULAR HGB CONC 36.4 g/dL (33.2-36.2); MEAN PLATELET VOLUME 7.5 fL (7.4-10.4); MONOCYTES % (AUTO) 11 % (2-9); NEUTROPHILS % (AUTO) 59 % (42-75); PLATELET COUNT 309 x10^3/uL (130-400); RED BLOOD COUNT 3.76 x10^6/uL (4.38-5.82); RED CELL DISTRIBUTION WIDTH 12.6 % (9.4-14.8)
[2021-01-19 05:08] LABS: ANION GAP 4 mmol/L (5-15); CALCIUM 10.3 mg/dL (8.5-10.1); CHLORIDE 99 mmol/L (98-107); CREATININE 0.81 mg/dL (0.7-1.3)
[2021-01-19 07:56] VITALS: BP 107/70
[2021-01-19] MEDS: MULTIVITAMINS/MINERALS TABLET PO SCH (09:21)
[2021-01-19] MEDS ORDERED: HEPARIN 5,000 UNITS/ML, 1ML ONE (15:12)
[2021-01-19 15:59] VITALS: BP 109/72
[2021-01-19 18:13] LABS: AMPHETAMINE SCREEN, URINE Positive (Negative); BARBITURATE SCREEN, URINE Negative (Negative); BENZODIAZEPINE SCREEN, URINE Negative (Negative); CANNABINOID SCREEN, URINE Negative (Negative); COCAINE SCREEN, URINE Negative (Negative); METHADONE SCREEN, URINE Negative (Negative); OPIATE SCREEN, URINE Negative (Negative)
[2021-01-19 19:25] VITALS: BP 101/67
[2021-01-19] MEDS: INSULIN GLARGINE 100 UNITS/ML, PEN SQ-INSULIN SCH (21:49)
[2021-01-20 00:52] VITALS: BP 97/61
[2021-01-20] MEDS: D5%-LACTATED RINGERS 1,000 ML IV SCH ×3 (01:32→17:51)
[2021-01-20 05:23] LABS: BASOPHILS % (AUTO) 0 % (0-1); EOSINOPHILS % (AUTO) 1 % (1-7); LYMPHOCYTES % (AUTO) 34 % (22-44); MEAN CORPUSCULAR HEMOGLOBIN 34.9 pg (27.5-34.5); MEAN CORPUSCULAR HGB CONC 35.4 g/dL (33.2-36.2); MEAN PLATELET VOLUME 7.8 fL (7.4-10.4); MONOCYTES % (AUTO) 8 % (2-9); NEUTROPHILS % (AUTO) 57 % (42-75); PLATELET COUNT 236 x10^3/uL (130-400); RED BLOOD COUNT 3.67 x10^6/uL (4.38-5.82); RED CELL DISTRIBUTION WIDTH 12.5 % (9.4-14.8)
[2021-01-20 05:31] LABS: ANION GAP 3 mmol/L (5-15); CALCIUM 7.7 mg/dL (8.5-10.1); CHLORIDE 101 mmol/L (98-107); CREATININE 0.66 mg/dL (0.7-1.3)
[2021-01-20 06:50] VITALS: BP 100/58
[2021-01-20] MEDS: ENOXAPARIN 40 MG/0.4 ML SQ SCH (08:34)
[2021-01-20] MEDS: INSULIN LISPRO 100 UNITS/ML, PEN SQ-INSULIN SCH ×2 (08:34→12:25)
[2021-01-20] MEDS ORDERED: DEXTROSE 5% IVPB SCH (09:00)
[2021-01-20] MEDS ORDERED: THIAMINE IVPB SCH (09:00)
[2021-01-20] MEDS ORDERED: FOLIC ACID IVPB SCH (09:00)
[2021-01-20] MEDS: MULTIVITAMINS/MINERALS TABLET PO SCH (09:00)
[2021-01-20 14:08] VITALS: BP 93/56
[2021-01-20] MEDS ORDERED: DEXTROSE 4 GM TAB.CHEW PO PRN (15:30)
[2021-01-20] MEDS ORDERED: GLUCAGON 1 MG IM PRN (15:30)
[2021-01-20] MEDS ORDERED: DEXTROSE 50%, 50ML SYRINGE IVPush PRN (15:30)
[2021-01-20] MEDS: INSULIN REGULAR 100 UNITS/ML, 3ML VIAL SQ-INSULIN SCH ×2 (16:00→20:45)
[2021-01-20] MEDS: BENZONATATE 100 MG CAPSULE PO SCH ×2 (16:52→20:45)
[2021-01-20 19:06] VITALS: BP 99/62
[2021-01-20] MEDS: INSULIN GLARGINE 100 UNITS/ML, PEN SQ-INSULIN SCH (20:44)
[2021-01-20] MEDS: SODIUM CHLORIDE FLUSH 10ML SYR IVF SCH (20:46)
[2021-01-21 01:27] VITALS: BP 96/57
[2021-01-21] MEDS: D5%-LACTATED RINGERS 1,000 ML IV SCH ×2 (02:38→11:33)
[2021-01-21 05:28] LABS: BASOPHILS % (AUTO) 0 % (0-1); EOSINOPHILS % (AUTO) 1 % (1-7); LYMPHOCYTES % (AUTO) 41 % (22-44); MEAN CORPUSCULAR HEMOGLOBIN 35.1 pg (27.5-34.5); MEAN CORPUSCULAR HGB CONC 35.5 g/dL (33.2-36.2); MEAN PLATELET VOLUME 7.8 fL (7.4-10.4); MONOCYTES % (AUTO) 8 % (2-9); NEUTROPHILS % (AUTO) 50 % (42-75); PLATELET COUNT 257 x10^3/uL (130-400); RED BLOOD COUNT 3.63 x10^6/uL (4.38-5.82); RED CELL DISTRIBUTION WIDTH 12.2 % (9.4-14.8)
[2021-01-21 05:40] LABS: ANION GAP 4 mmol/L (5-15); CALCIUM 8.1 mg/dL (8.5-10.1); CHLORIDE 108 mmol/L (98-107)
[2021-01-21 06:07] LABS: CREATININE 0.44 mg/dL (0.7-1.3)
[2021-01-21] MEDS: INSULIN REGULAR 100 UNITS/ML, 3ML VIAL SQ-INSULIN SCH ×3 (07:00→16:00)
[2021-01-21 07:04] VITALS: BP 105/69
[2021-01-21] MEDS: BENZONATATE 100 MG CAPSULE PO SCH ×2 (08:53→16:00)
[2021-01-21] MEDS: SODIUM CHLORIDE FLUSH 10ML SYR IVF SCH (08:53)
[2021-01-21] MEDS: MULTIVITAMINS/MINERALS TABLET PO SCH (08:53)
[2021-01-21] MEDS: ENOXAPARIN 40 MG/0.4 ML SQ SCH (08:53)
[2021-01-21] MEDS ORDERED: THIAMINE 100MG TABLET PO SCH (09:00)
[2021-01-21] MEDS ORDERED: FOLIC ACID 1 MG TABLET PO SCH (09:00)
[2021-01-21 12:43] VITALS: BP 110/69
[2021-01-21] MEDS ORDERED: INSU100I13 SQ-INSULIN (15:36)
== END 2021-01-21 16:50 | disposition home or self-care (01) | DRG 638 ==
LOC: ED 21:46 → OBSVTOIN 01-19 02:14 → EDIP 01-19 02:14 → INTOOBSV 01-19 02:14 → 4EST 01-19 03:30
PROVIDERS: ADMIT Internal Medicine; ATTEND Internal Medicine
DX: E11.65 Type 2 diabetes mellitus with hyperglycemia (principal); N17.9 Acute kidney failure, unspecified; E87.2 Acidosis; E86.0 Dehydration; E86.1 Hypovolemia; E87.5 Hyperkalemia; F10.20 Alcohol dependence, uncomplicated; F15.10 Other stimulant abuse, uncomplicated; F17.210 Nicotine dependence, cigarettes, uncomplicated; F20.9 Schizophrenia, unspecified; F42.9 Obsessive-compulsive disorder, unspecified; F43.10 Post-traumatic stress disorder, unspecified; K59.00 Constipation, unspecified; K70.10 Alcoholic hepatitis without ascites; Z79.4 Long term (current) use of insulin; Z82.49 Family history of ischemic heart disease and other diseases of the circulatory system; Z91.14 Patient's other noncompliance with medication regimen
CPT/HCPCS: 36415; 87806; 96374; 96375; 99285; J7121; 71045; 76705; 80048; 80053; 80074; 80307; 80320; 82010; 82607; 82803; 82962; 83036; 83690; 83735; 83930; 84100; 85025; 86592; G0378; J1650; J1815; J2405; J3411; G0475; G0480; J7120

== ENCOUNTER 2021-03-26 17:50 | Emergency (ER) | payer MEDICAID ==
[~2021-03-26] VITALS: Ht 177.8 cm; Wt 67.0 kg
[2021-03-26 18:06] VITALS: BP 128/71
== END 2021-03-26 19:26 | disposition home or self-care (01) ==
LOC: ED 18:00
DX: S80.212A Abrasion, left knee, initial encounter (principal); L03.116 Cellulitis of left lower limb; E11.65 Type 2 diabetes mellitus with hyperglycemia; R94.31 Abnormal electrocardiogram [ECG] [EKG]; F17.200 Nicotine dependence, unspecified, uncomplicated; X58.XXXA Exposure to other specified factors, initial encounter; Y93.89 Activity, other specified; Y92.89 Other specified places as the place of occurrence of the external cause; Y99.8 Other external cause status
CPT/HCPCS: 36415; 73560; 80053; 82010; 82800; 82962; 85025; 93005; 96365; 99285; J0696; J7030

== ENCOUNTER 2021-04-04 22:38 | Emergency (ER) | payer MEDICAID ==
[~2021-04-04] VITALS: Ht 177.8 cm; Wt 86.5 kg
[~2021-04-04 22:38] MED LIST changes: -QUET100T PO; +QUET100T2 PO
--- NOTE | 2021-04-04 22:57 | NUR ---
BREAK RN: PT PABLO HANLEY AND [facility]. PT WAS DENIED BY THE [facility] FOR HIGH BLOOD SUGAR. PT HAS A HISTORY OF DIABETES. VS STABLE. NO ACUTE DISTRESS. CALL LIGHT IN PLACE. WILL CONTINUE TO MONITOR.
[2021-04-04] MEDS ORDERED: SODIUM CHLORIDE 0.9% 1,000ML IVBOLUS ONE (23:00)
[2021-04-04 23:22] LABS: ALBUMIN 2.9 g/dL (3.4-5.0); ANION GAP 9 mmol/L (5-15); CALCIUM 8.4 mg/dL (8.5-10.1); CHLORIDE 99 mmol/L (98-107); CREATININE 0.72 mg/dL (0.7-1.3)
[2021-04-04 23:26] LABS: BASOPHILS % (AUTO) 1 % (0-1); EOSINOPHILS % (AUTO) 1 % (1-7); LYMPHOCYTES % (AUTO) 36 % (22-44); MEAN CORPUSCULAR HEMOGLOBIN 34.7 pg (27.5-34.5); MEAN CORPUSCULAR HGB CONC 35.7 g/dL (33.2-36.2); MEAN PLATELET VOLUME 7.5 fL (7.4-10.4); MONOCYTES % (AUTO) 6 % (2-9); NEUTROPHILS % (AUTO) 57 % (42-75); PLATELET COUNT 264 x10^3/uL (130-400); RED BLOOD COUNT 3.41 x10^6/uL (4.38-5.82); RED CELL DISTRIBUTION WIDTH 12.7 % (9.4-14.8)
[2021-04-04] MEDS ORDERED: INSULIN SINGLE DOSE, ER ONE (23:43)
[2021-04-05] MEDS ORDERED: INSULIN REGULAR 100 UNITS/ML, 3ML VIAL IVPush ONE
--- NOTE | 2021-04-05 00:45 | NUR ---
CALL MADE TO [facility] AT [phone] TO INFORM PT IS UP FOR DC. TOLD ALL OFFICERS ARE ON EMERGENCY CALLS AND WILL HAVE AN OFFICER CALL WHEN ON WAY TO [employer] PATIENT.
[2021-04-05 01:39] VITALS: BP 108/63
--- NOTE | 2021-04-05 01:40 | NUR ---
[facility] HERE TO TAKE PT TO [facility]. PT AMBULATORY WITH STEADY GAIT AND LEFT IN HANDCUFFS WITH OFFICER. OFFICER LEFT WITH ALL OF PTS PERSONAL BELONGINGS. ALL QUESTIONS ANSWERED
== END 2021-04-05 01:42 ==
LOC: ED 23:00
DX: E11.65 Type 2 diabetes mellitus with hyperglycemia (principal); F15.129 Other stimulant abuse with intoxication, unspecified; Z91.19 Patient's noncompliance with other medical treatment and regimen; R00.0 Tachycardia, unspecified
CPT/HCPCS: 36415; 80048; 82040; 82962; 85025; 93005; 96361; 96374; 99284; J1815; J7030